=== PATIENT | female | born 1995 | race Caucasian/White ===

== ENCOUNTER 2018-07-24 07:26 | Outpatient (CLI) | payer OTHER | END 2018-07-24 07:40 | disposition home or self-care (01) | LOC: NUCLEAR 07:26 | DX: K80.20 Calculus of gallbladder without cholecystitis without obstruction (principal); R10.13 Epigastric pain | CPT/HCPCS: 78227; A9537 ==

== ENCOUNTER 2022-10-17 11:11 | Emergency (ER) | payer OTHER ==
[~2022-10-17] VITALS: Ht 154.9 cm; Wt 53.1 kg
[2022-10-17] MEDS ORDERED: ROSUVASTATIN CA40 MG PO (12:51)
[2022-10-17] MEDS ORDERED: EZETIMIBE10 MG PO (12:51)
[2022-10-17] MEDS ORDERED: DICLOFENAC SODI75 MG PO (14:28)
[2022-10-17] MEDS ORDERED: NORFLEX100MG PO (14:28)
== END 2022-10-17 14:53 | disposition home or self-care (01) ==
LOC: ER 11:11
DX: S13.4XXA Sprain of ligaments of cervical spine, initial encounter (principal); V43.92XA Unspecified car occupant injured in collision with other type car in traffic accident, initial encounter; Y93.89 Activity, other specified; Y92.413 State road as the place of occurrence of the external cause; Z88.6 Allergy status to analgesic agent

== ENCOUNTER 2024-09-26 04:31 | Emergency (ER) | payer OTHER ==
[~2024-09-26] VITALS: Ht 154.9 cm; Wt 51.3 kg
[~2024-09-26 04:31] MED LIST: DICLOFENAC SODI75 MG PO; EZETIMIBE10 MG PO; NORFLEX100MG PO; ROSUVASTATIN CA40 MG PO
[2024-09-26] MEDS ORDERED: MESALAMINE800 MG PO (04:48)
[2024-09-26] MEDS ORDERED: 0.9 % SODIUM CHLORIDE 1,000 ML IV STA (05:35)
[2024-09-26] MEDS ORDERED: DEXAMETHASONE SODIUM PHOSPHATE 4 MG/ML VIAL IV STA (05:36)
[2024-09-26] MEDS ORDERED: ONDANSETRON HCL 2 MG/ML VIAL IV STA (05:37)
[2024-09-26] MEDS ORDERED: DIPHENOXYLATE HCL/ATROPINE 1 UDTAB TABLET PO STA (05:37)
[2024-09-26] MEDS ORDERED: PROMETHAZINE HCL 50 MG/ML AMPUL IM STA (05:38)
[2024-09-26] MEDS ORDERED: HYOSCYAMINE SULFATE 0.125 MG TAB.SUBL SL ONE ×2 (05:45→10:45)
[2024-09-26 06:24] LABS: BASO % 0.4 % (0.1-1.2); EOS # 0.04 (0.04-0.54); EOS % 0.2 % (0.7-7.0); LYMPH # 2.56 (1.18-3.74); LYMPH % 13.6 % (19.3-53.1); MEAN PLATELET VOLUME 10.80 fl (9.4-12.4); MONO # 0.90 (0.24-0.82); MONO % 4.8 % (4.7-12.5); NEUT # 15.17 (1.56-6.13); NEUT % 80.6 % (34.0-71.1); RED CELL DISTRIBUTION WIDTH 12.8 % (11.6-14.4)
[2024-09-26 06:38] LABS: ALT/SGPT 22.0 U/L (12-78); AST/SGOT 14.0 U/L (15-37); BILIRUBIN TOTAL 0.36 mg/dL (0.3-1.2); BUN CREA RATIO 20.0 (7.0-25.0); CREATININE SERUM 0.69 mg/dL (0.55-1.02); GFR 102.06; GLOBULINA 4.0 G/DL (2.4-3.5); GLUCOSE FASTING 95.0 mg/dL (65-100); OSMOLALITY SERUM 282.0 MOSM/KG (275-295)
[2024-09-26] MEDS ORDERED: FAMOtidine 10 MG/ML (4ML VIAL) IV PUSH STA (07:41)
== END 2024-09-26 15:58 | disposition home or self-care (01) ==
LOC: ER 04:31
DX: K50.00 Crohn's disease of small intestine without complications (principal); R10.9 Unspecified abdominal pain; R11.10 Vomiting, unspecified; Z88.6 Allergy status to analgesic agent
CPT/HCPCS: 36415; 74022; 74177; Q9965